=== PATIENT | female | born 2000 | race Two or more races ===

== ENCOUNTER 2019-06-14 22:39 | Emergency (ER) | payer MEDICARE ==
[~2019-06-14] VITALS: Ht 157.5 cm; Wt 54.4 kg
--- OUTSIDE RECORDS SUMMARY | 2019-06-14 22:43 | XMS REPORT | Summary of Care ---
Author Author [facility] Organization [facility] Address Unknown Phone Unavailable Encounter HQ Mima(ROBERTA) [id number] Date(s): 08/05/18 - 08/05/18 [facility] [address] [place] [address]- Encounter Diagnosis Bacterial vaginosis (Discharge Diagnosis) - 08/05/18 Abdominal pain during (Discharge Diagnosis) - 08/05/18 Infection of other part of genital tract in , first trimester (Final) - 08/10/18 Other specified bacterial agents as the cause of diseases classified elsewhere (Final) - 11 weeks gestation of (Final) - Discharge Disposition: Home or Self Care Attending Physician: Nate Smith MD Vital Signs Most recent to 1 2 oldest [Reference Range]: Temperature Oral 98.6 DegF 99.0 DegF [96.4-99.1 DegF] (08/05/18 11:44 AM) (08/05/18 7:02 AM) Blood Pressure 107/70 mmHg 109/73 mmHg [90-140/60-90 mmHg] (08/05/18 11:44 AM) (08/05/18 7:02 AM) Respiratory Rate 18 BRMIN 18 BRMIN [14-20 BRMIN] (08/05/18 11:44 AM) (08/05/18 7:02 AM) Peripheral Pulse 72 bpm 78 bpm Rate [60-100 bpm] (08/05/18 11:44 AM) (08/05/18 7:02 AM) Problem List Condition Effective Dates Status Health Status Informant Acute Resolved bronchitis(Confirmed ) Anemia(Confirmed)1 Resolved Asthma(Confirmed) Resolved (Confirmed) 05/19/18 - 02/04/19 Resolved Scoliosis(Confirmed) Resolved 1with Allergies, Adverse Reactions, Alerts No Known Medication Allergies Medications metroNIDAZOLE 0.75% vaginal gel with applicator 1 appl, VAG, Daily, # 70 gm, 0 Refill(s) Start Date: 08/05/18 Stop Date: 02/04/19 Status: Completed Results Most recent to 1 oldest [Reference Range]: Neutrophils # 5.1 K/CMM [1.5-8.1 K/CMM] (08/05/18 7:46 AM) Lymphocytes # 2.1 K/CMM [1.0-5.5 K/CMM] (08/05/18 7:46 AM) Monocytes # [0.0-0.8 0.4 K/CMM K/CMM] (08/05/18 7:46 AM) Eosinophils # 0.1 K/CMM [0.0-0.5 K/CMM] (08/05/18 7:46 AM) eGFR 147 mL/min/1.73m2 1 *NA* (08/05/18 7:46 AM) ABO/Rh O POS *Unknown* (08/05/18 7:46 AM) A/G Ratio [0.7-1.6] 1.0 (08/05/18 7:46 AM) Albumin Lvl [3.5-5.0 3.3 g/dL g/dL] *LOW* (08/05/18 7:46 AM) Alk Phos [39-136 49 unit/L unit/L] (08/05/18 7:46 AM) ALT [0-65 unit/L] 14 unit/L (08/05/18 7:46 AM) AGAP [10.0-20.0 15.7 mEq/L mEq/L] (08/05/18 7:46 AM) AST [0-37 unit/L] 12 unit/L (08/05/18 7:46 AM) B/C Ratio [6-25] 13 (08/05/18 7:46 AM) Basophils [0.0-1.0 0.5 % %] (08/05/18 7:46 AM) [place] [address] mIU/mL *NA* (08/05/18 7:46 AM) BUN [7-22 mg/dL] 9 mg/dL (08/05/18 7:46 AM) Calcium Lvl 8.4 mg/dL [8.5-10.5 mg/dL] *LOW* (08/05/18 7:46 AM) Chloride Lvl [95-109 107 mEq/L mEq/L] (08/05/18 7:46 AM) CO2 [24-32 mEq/L] 22 mEq/L *LOW* (08/05/18 7:46 AM) Creatinine Lvl 0.68 mg/dL [0.50-1.40 mg/dL] (08/05/18 7:46 AM) Eosinophils [0.0-4.0 1.1 % %] (08/05/18 7:46 AM) Globulin [2.7-4.2 3.3 g/dL g/dL] (08/05/18 7:46 AM) Glucose Lvl [70-99 78 mg/dL mg/dL] (08/05/18:46 AM) Hct [36.0-48.0 %] 35.0 % *LOW* (08/05/18:46 AM) Hgb [12.0-16.0 g/dL] 11.8 g/dL *LOW* (08/05/18 7:46 AM) Potassium Lvl 3.7 mEq/L [3.5-5.1 mEq/L] (08/05/18 7:46 AM) Lymphocytes 27.0 % [20.0-40.0 %] (08/05/18 7:46 AM) MCH [27.0-31.0 pg] 28.3 pg (08/05/18:46 AM) MCHC [32.0-36.0 33.7 g/dL g/dL] (08/05/18 7:46 AM) MCV [80.0-98.0 fL] 84.2 fL (08/05/18 7:46 AM) Monocytes [2.0-12.0 4.8 % %] (08/05/18 7:46 AM) MPV [7.4-10.4 fL] 8.4 fL (08/05/18 7:46 AM) Sodium Lvl [135-145 141 mEq/L mEq/L] (08/05/18 7:46 AM) Platelet [133-450 335 K/CMM K/CMM] (08/05/18 7:46 AM) Segs [45.0-75.0 %] 66.6 % (08/05/18 7:46 AM) Total Protein 6.6 g/dL [6.4-8.4 g/dL] (08/05/18 7:46 AM) RBC [4.20-5.40 4.16 M/CMM M/CMM] *LOW* (08/05/18 7:46 AM) RDW [11.5-14.5 %] 12.8 % (08/05/18 7:46 AM) Bili Total [0.2-1.3 0.6 mg/dL mg/dL] (08/05/18 7:46 AM) UA Bili [Negative] Negative *NA* (08/05/18 7:46 AM) UA Blood [Negative] Negative (08/05/18 7:46 AM) UA Color [Yellow] Yellow *NA* (08/05/18 7:46 AM) UA Glucose Negative [Negative] (08/05/18 7:46 AM) UA Ketones Negative [Negative] *NA* (08/05/18 7:46 AM) UA Leuk Est Negative [Negative] (08/05/18 7:46 AM) UA Nitrite Negative [Negative] (08/05/18 7:46 AM) UA pH [5.0-8.0] 6.0 (08/05/18 7:46 AM) UA Protein Negative [Negative] (08/05/18 7:46 AM) UA RBC [0-2 /HPF] 1 /HPF (08/05/18 7:46 AM) UA Spec Grav >=1.030 [<=1.030] *ABN* (08/05/18 7:46 AM) UA Sq Epi [Few /LPF] Moderate /LPF *ABN* (08/05/18 7:46 AM) UA Turbidity [Clear] Clear (08/05/18 7:46 AM) UA Urobilinogen 0.2 EU/dL [0.1-1.0 EU/dL] (08/05/18 7:46 AM) UA WBC [0-5 /HPF] 2 /HPF (08/05/18 7:46 AM) WBC [3.7-10.4 K/CMM] 7.6 K/CMM (08/05/18 7:46 AM) C trachomatis by Amp Negative Det (APTIMA) *NA* [Negative] (08/05/18 9:58 AM) N gonorrhea by Amp Negative Det (APTIMA) *NA* [Negative] (08/05/18 9:58 AM) Source APTIMA Endocervix *NA* (08/05/18 9:58 AM) 1Result Comment: The eGFR is calculated using the CKD-EPI formula. In most young, healthy individuals the eGFR will be >90 mL/min/1.73m2. The eGFR declines with age. An eGFR of 60-89 may be normal in some populations, particularly the elderly, for whom the CKD-EPI formula has not been extensively validated. Use of the eGFR is not recommended in the following populations: Individuals with unstable creatinine concentrations, including patients and those with serious co-morbid conditions. Patients with extremes in muscle mass or diet. The data above are obtained from the National Kidney Disease Education Program ( NKDEP) which additionally recommends that when the eGFR is used in patients with extremes of body mass index for purposes of drug dosing, the eGFR should be mul tiplied by the estimated BMI. Immunizations Given and Recorded Vaccine Date Status Refusal Reason pneumococcal 23-valent vaccine 02/06/19 Given diphtheria/pertussis, acel/tetanus adult 02/06/19 Given Procedures No data available for this section Social History Social History Type Response Substance Abuse Use: None. Alcohol Never Smoking Status Never smoker; Ready to change: No; Concerns about tobacco use in household: No; Exposure to Tobacco Smoke None; Cigarette Smoking Last 365 Days No; Reg Smoking Cessation Counseling No entered on: 02/03/19 Assessment and Plan No data available for this section
--- OUTSIDE RECORDS SUMMARY | 2019-06-14 22:43 | XMS REPORT | Summary of Care ---
Author Author [facility] Organization [facility] Address Unknown Phone Unavailable Encounter JULIET Guillermo(FIN) [id number] Date(s): 03/01/18 - 03/01/18 [facility] [address] [place] [address]- [phone] Encounter Diagnosis Fever, unspecified (Discharge Diagnosis) - 03/01/18 Abdominal pain, vomiting, and diarrhea (Discharge Diagnosis) - 03/01/18 Discharge Disposition: Home or Self Care Attending Physician: Xiomara Zepeda MD Vital Signs 1 2 3 Most recent to oldest [Reference Range]: 160.02 cm (03/01/18 2:52 PM) Height 99.2 DegF *HI* (03/01/18 7:16 PM) 102 DegF *HI* (03/01/18 5:50 PM) 103 DegF *HI* (03/01/18 2:52 PM) Temperature Oral [96.4-99.1 DegF] 96/54 mmHg (03/01/18 7:16 PM) 101/67 mmHg (03/01/18 5:50 PM) 102/64 mmHg (03/01/18 2:52 PM) Blood Pressure [90-140/60-90 mmHg] 18 BRMIN (03/01/18 7:16 PM) 17 BRMIN (03/01/18 5:50 PM) 18 BRMIN (03/01/18 2:52 PM) Respiratory Rate [14-20 BRMIN] 67 bpm (03/01/18 7:16 PM) 88 bpm (03/01/18 5:50 PM) 108 bpm *HI* (03/01/18 2:52 PM) Peripheral Pulse Rate [60-100 bpm] 52.273 kg (03/01/18 2:52 PM) Weight 20.41 m2 (03/01/18 2:52 PM) Body Mass Index Problem List No data available for this section Allergies, Adverse Reactions, Alerts Substance Reaction Severity Status NKDA Active Medications ibuprofen 600 mg, Route: PO, Drug form: TAB, ONCE, Dosing Weight 52.273, kg, Priority: STA T, Start date: 03/01/18 16:29:00 CDT, Stop date: 03/01/18 16:29:00 CDT Start Date: 03/01/18 Stop Date: 03/01/18 Status: Completed Sodium Chloride 0.9% (Bolus) IV 1,000 mL, 1,000 ml/hr, Infuse Over: 1 hr, Route: IV, 1,000, Drug form: INJ, ONCE , Priority: STAT, Dosing Weight 52.727 kg, Start date: 03/01/18 14:56:00 CDT, St op date: 03/01/18 14:56:00 CDT Start Date: 03/01/18 Stop Date: 03/01/18 Status: Completed Tylenol 975 mg, Route: PO, Drug form: TAB, ONCE, Dosing Weight 52.273, kg, Priority: STA T, Start date: 03/01/18 18:06:00 CDT, Stop date: 03/01/18 18:06:00 CDT Start Date: 03/01/18 Stop Date: 03/01/18 Status: Completed Zofran 4 mg, 2 mL, Route: IVP, Drug form: INJ, ONCE, Dosing Weight 52.727, kg, Start da te: 03/01/18 14:56:00 CDT, Stop date: 03/01/18 14:56:00 CDT Notes: (Same as: Zofran) MEDICATION WASTE Product Size: 4 mgProduct Was shayla: ___ mg Start Date: 03/01/18 Stop Date: 03/01/18 Status: Completed Zofran ODT 4 mg, Route: PO, Drug form: TABDIS, ONCE, Dosing Weight 52.273, kg, Priority: ST AT, Start date: 03/01/18 15:54:00 CDT, Stop date: 03/01/18 15:54:00 CDT Start Date: 03/01/18 Stop Date: 03/01/18 Status: Completed Results ELECTROLYTES Most recent to 1 oldest [Reference Range]: Sodium Lvl [135-145 139 mEq/L mEq/L] (03/01/18 3:34 PM) Potassium Lvl 4.5 mEq/L [3.5-5.1 mEq/L] (03/01/18 3:34 PM) Chloride Lvl [95-109 101 mEq/L mEq/L] (03/01/18 3:34 PM) CO2 [24-32 mEq/L] 27 mEq/L (03/01/18 3:34 PM) AGAP [10.0-20.0 15.5 mEq/L mEq/L] (03/01/18 3:34 PM) CHEM PANEL Most recent to 1 oldest [Reference Range]: Creatinine Lvl 1.08 mg/dL [0.50-1.40 mg/dL] (03/01/18 3:34 PM) eGFR 87 mL/min/1.73m2 1 *NA* (03/01/18 3:34 PM) BUN [7-22 mg/dL] 13 mg/dL (03/01/18 3:34 PM) B/C Ratio [6-25] 12 (03/01/18 3:34 PM) Glucose Lvl [70-99 82 mg/dL mg/dL] (03/01/18 3:34 PM) Total Protein 8.3 g/dL [6.4-8.4 g/dL] (03/01/18 3:34 PM) Albumin Lvl [3.5-5.0 4.4 g/dL g/dL] (03/01/18 3:34 PM) Globulin [2.7-4.2 3.9 g/dL g/dL] (03/01/18 3:34 PM) A/G Ratio [0.7-1.6] 1.1 (03/01/18 3:34 PM) Calcium Lvl 9.2 mg/dL [8.5-10.5 mg/dL] (03/01/18 3:34 PM) ALT [0-65 unit/L] 28 unit/L (03/01/18 3:34 PM) AST [0-37 unit/L] 16 unit/L (03/01/18 3:34 PM) Alk Phos [39-136 95 unit/L unit/L] (03/01/18 3:34 PM) Bili Total [0.2-1.3 2.1 mg/dL mg/dL] *HI* (03/01/18 3:34 PM) Lipase Lvl [73-393 96 unit/L unit/L] (03/01/18 3:34 PM) 1Result Comment: The eGFR is calculated using [...] be mul tiplied by the estimated BMI. ENDOCRINOLOGY Most recent to 1 oldest [Reference Range]: hCG Tot <1 mIU/mL *NA* (03/01/18 3:34 PM) URINE AND STOOL Most recent to 1 oldest [Reference Range]: UA Turbidity [Clear] Clear (03/01/18 3:58 PM) UA Color Ltyellow *NA* (03/01/18 3:58 PM) UA pH [5.0-8.0] 7.0 (03/01/18 3:58 PM) UA Spec Grav 1.017 [<=1.030] (03/01/18 3:58 PM) UA Glucose [Negative Negative mg/dL mg/dL] *NA* (03/01/18 3:58 PM) UA Blood [Negative] Negative (03/01/18 3:58 PM) UA Ketones [Negative Negative mg/dL mg/dL] *NA* (03/01/18 3:58 PM) UA Protein [Negative Negative mg/dL mg/dL] (03/01/18 3:58 PM) UA Urobilinogen <=1.0 mg/dL [0.1-1.0 mg/dL] *NA* (03/01/18 3:58 PM) UA Bili [Negative] Negative *NA* (03/01/18 3:58 PM) UA Leuk Est Trace [Negative] *ABN* (03/01/18 3:58 PM) UA Nitrite Negative [Negative] (03/01/18 3:58 PM) UA WBC [0-5 /HPF] 19 /HPF *HI* (03/01/18 3:58 PM) UA RBC [0-2 /HPF] 3 /HPF *HI* (03/01/18 3:58 PM) UA Sq Epi [Few /LPF] Occasional /LPF *NA* (03/01/18 3:58 PM) HEMATOLOGY Most recent to 1 oldest [Reference Range]: WBC [3.7-10.4 K/CMM] 10.6 K/CMM *HI* (03/01/18 3:34 PM) RBC [4.20-5.40 5.18 M/CMM M/CMM] (03/01/18 3:34 PM) Hgb [12.0-16.0 g/dL] 14.1 g/dL (03/01/18 3:34 PM) Hct [36.0-48.0 %] 42.9 % (03/01/18 3:34 PM) MCV [80.0-98.0 fL] 82.8 fL (03/01/18 3:34 PM) MCH [27.0-31.0 pg] 27.3 pg (03/01/18 3:34 PM) MCHC [32.0-36.0 32.9 g/dL g/dL] (03/01/18 3:34 PM) RDW [11.5-14.5 %] 13.0 % (03/01/18 3:34 PM) MPV [7.4-10.4 fL] 8.7 fL (03/01/18 3:34 PM) Platelet [133-450 404 K/CMM K/CMM] (03/01/18 3:34 PM) Segs [45.0-75.0 %] 92.0 % *HI* (03/01/18 3:34 PM) Lymphocytes 4.7 % [20.0-40.0 %] *LOW* (03/01/18 3:34 PM) Monocytes [2.0-12.0 3.0 % %] (03/01/18 3:34 PM) Eosinophils [0.0-4.0 0.2 % %] (03/01/18 3:34 PM) Basophils [0.0-1.0 0.1 % %] (03/01/18 3:34 PM) Segs-Bands # 9.8 K/CMM [1.5-8.1 K/CMM] *HI* (03/01/18 3:34 PM) Lymphocytes # 0.5 K/CMM [1.0-5.5 K/CMM] *LOW* (03/01/18 3:34 PM) Monocytes # [0.0-0.8 0.3 K/CMM K/CMM] (03/01/18 3:34 PM) RAPID Most recent to 1 oldest [Reference Range]: Grp A Strep Scr Negative [Negative] (03/01/18 5:53 PM) VIRAL - SEROLOGY Most recent to 1 oldest [Reference Range]: Influ A [Negative] Negative (03/01/18 3:34 PM) Influ B [Negative] Negative (03/01/18 3:34 PM) Immunizations No data available for this section Procedures No data available for this section Social History Social History Type Response Smoking Status Never smoker; Ready to change: No; Concerns about tobacco use in household: No; Exposure to Tobacco Smoke None; Cigarette Smoking Last 365 Days No; Reg Smoking Cessation Counseling No entered on: 03/01/18 Assessment and Plan No data available for this section
--- OUTSIDE RECORDS SUMMARY | 2019-06-14 22:43 | XMS REPORT | Summary of Care ---
Author Author [facility] Organization [facility] Address Unknown Phone Unavailable Encounter JULIET Guillermo(ROBERTA) [id number] Date(s): 10/07/17 - 10/07/17 [facility] [address] [place] [address]- [phone] Discharge Diagnosis: Acute depression Discharge Diagnosis: Tylenol ingestion Discharge Disposition: Home or Self Care Attending Physician: Kamryn Watts DO Vital Signs 1 2 3 Most recent to oldest [Reference Range]: 98.4 DegF (10/07/17 5:20 AM) Temperature Oral [96.4-99.1 DegF] 122/84 mmHg (10/07/17 5:20 AM) 114/80 mmHg (10/07/17 3:04 AM) 123/87 mmHg (10/07/17 1:37 AM) Blood Pressure [90-140/60-90 mmHg] 16 BRMIN (10/07/17 5:20 AM) 17 BRMIN (10/07/17 3:04 AM) 16 BRMIN (10/07/17 1:37 AM) Respiratory Rate [14-20 BRMIN] 66 bpm (10/07/17 5:20 AM) 63 bpm (10/07/17 3:04 AM) 66 bpm (10/07/17 1:37 AM) Peripheral Pulse Rate [60-100 bpm] Problem List No data available for this section Allergies, Adverse Reactions, Alerts Substance Reaction Severity Status NKDA Active Medications Saline Flush 0.9% 10 mL, Route: IVP, Drug Form: INJ, Dosing Weight 52.727, kg, PRN, PRN Line Flush , Start date: 10/07/17 1:00:00 CONTINUOUS WASHER OPERATOR, Duration: 30 day, Stop date: 11/06/17 0:59:0 0 CONTINUOUS WASHER OPERATOR Notes: (Same as: BD Posiflush) Start Date: 10/07/17 Stop Date: 10/07/17 Status: Discontinued Sodium Chloride 0.9% (Bolus) IV 1,000 mL, 1,000 ml/hr, Infuse Over: 1 hr, Route: IV, ONCE, Priority: STAT, Emelina orta Weight 52.727 kg, Start date: 10/07/17 1:00:00 CONTINUOUS WASHER OPERATOR, Stop date: 10/07/17 1:00:0 0 CONTINUOUS WASHER OPERATOR Start Date: 10/07/17 Stop Date: 10/07/17 Status: Completed Results ELECTROLYTES Most recent to 1 2 oldest [Reference Range]: Sodium Lvl [135-145 139 mEq/L mEq/L] (10/07/17 1:13 AM) Potassium Lvl 3.6 mEq/L [3.5-5.1 mEq/L] (10/07/17 1:13 AM) Chloride Lvl [95-109 105 mEq/L mEq/L] (10/07/17 1:13 AM) CO2 [24-32 mEq/L] 25 mEq/L (10/07/17 1:13 AM) AGAP [10.0-20.0 12.6 mEq/L mEq/L] (10/07/17 1:13 AM) CHEM PANEL Most recent to 1 2 oldest [Reference Range]: Creatinine Lvl 0.84 mg/dL [0.50-1.40 mg/dL] (10/07/17 1:13 AM) eGFR 117 mL/min/1.73m2 1 *NA* (10/07/17 1:13 AM) BUN [7-22 mg/dL] 11 mg/dL (10/07/17 1:13 AM) B/C Ratio [6-25] 13 (10/07/17 1:13 AM) Glucose Lvl [70-99 82 mg/dL mg/dL] (10/07/17 1:13 AM) Total Protein 7.8 g/dL [6.4-8.4 g/dL] (10/07/17 1:13 AM) Albumin Lvl [3.5-5.0 4.3 g/dL g/dL] (10/07/17 1:13 AM) Globulin [2.7-4.2 3.5 g/dL g/dL] (10/07/17 1:13 AM) A/G Ratio [0.7-1.6] 1.2 (10/07/17 1:13 AM) Calcium Lvl 8.7 mg/dL [8.5-10.5 mg/dL] (10/07/17 1:13 AM) Phosphorus [2.5-4.5 3.4 mg/dL mg/dL] (10/07/17 1:02 AM) Magnesium Lvl 2.1 mg/dL [1.8-2.4 mg/dL] (10/07/17 1:02 AM) ALT [0-65 unit/L] 22 unit/L (10/07/17 1:13 AM) AST [0-37 unit/L] 16 unit/L (10/07/17 1:13 AM) Alk Phos [39-136 78 unit/L unit/L] (10/07/17 1:13 AM) Bili Total [0.2-1.3 1.6 mg/dL mg/dL] *HI* (10/07/17 1:13 AM) 1Result Comment: The eGFR is calculated [...] be mul tiplied by the estimated BMI. DRUG SCREEN Most recent to 1 2 oldest [Reference Range]: U Amph Scr Negative [Negative] *NA* (10/07/17 1:42 AM) U Jonna Scr Negative [Negative] *NA* (10/07/17 1:42 AM) U Benzodia Scr Negative [Negative] *NA* (10/07/17 1:42 AM) U Cocaine Scr Negative [Negative] *NA* (10/07/17 1:42 AM) U Opiate Scr Negative [Negative] *NA* (10/07/17 1:42 AM) U Phencyc Scr Negative [Negative] *NA* (10/07/17 1:42 AM) U Cannab Scr Negative [Negative] *NA* (10/07/17 1:42 AM) UDS Note See Note (10/07/17 1:42 AM) TOXICOLOGY Most recent to 1 2 oldest [Reference Range]: Acetaminoph Lvl 20 ug/ml 65 ug/ml [10-20 ug/ml] (10/07/17 3:45 AM) *HI* (10/07/17 1:13 AM) Salicylate Lvl <1.7 mg/dL [0.0-30.0 mg/dL] (10/07/17 1:13 AM) Etoh (%) <.003 % *NA* (10/07/17 1:13 AM) Ethanol Lvl <3 mg/dL *NA* (10/07/17 1:13 AM) ENDOCRINOLOGY Most recent to 1 2 oldest [Reference Range]: S Preg [Negative] Negative *NA* (10/07/17 1:13 AM) URINE CHEM Most recent to 1 2 oldest [Reference Range]: U Preg [Negative] Negative (10/07/17 1:42 AM) URINE AND STOOL Most recent to 1 2 oldest [Reference Range]: UA Turbidity [Clear] Clear (10/07/17 1:42 AM) UA Color Ltyellow *NA* (10/07/17 1:42 AM) UA pH [5.0-8.0] 6.0 (10/07/17 1:42 AM) UA Spec Grav 1.010 [<=1.030] (10/07/17 1:42 AM) UA Glucose [Negative Negative mg/dL mg/dL] *NA* (10/07/17 1:42 AM) UA Blood [Negative] Negative (10/07/17 1:42 AM) UA Ketones [Negative Trace mg/dL mg/dL] *ABN* (10/07/17 1:42 AM) UA Protein [Negative Negative mg/dL mg/dL] (10/07/17 1:42 AM) UA Urobilinogen <=1.0 mg/dL [0.1-1.0 mg/dL] *NA* (10/07/17 1:42 AM) UA Bili [Negative] Negative *NA* (10/07/17 1:42 AM) UA Leuk Est Trace [Negative] *ABN* (10/07/17 1:42 AM) UA Nitrite Negative [Negative] (10/07/17 1:42 AM) UA WBC [0-5 /HPF] 1 /HPF (10/07/17 1:42 AM) UA RBC [0-2 /HPF] 1 /HPF (10/07/17 1:42 AM) UA Bacteria [None Occasional /HPF Seen /HPF] *NA* (10/07/17 1:42 AM) UA Sq Epi [Few /LPF] Occasional /LPF *NA* (10/07/17 1:42 AM) HEMATOLOGY Most recent to 1 2 oldest [Reference Range]: WBC [3.7-10.4 K/CMM] 7.6 K/CMM (10/07/17 1:13 AM) RBC [4.20-5.40 4.96 M/CMM M/CMM] (10/07/17 1:13 AM) Hgb [12.0-16.0 g/dL] 13.9 g/dL (10/07/17 1:13 AM) Hct [36.0-48.0 %] 42.3 % (10/07/17 1:13 AM) MCV [80.0-98.0 fL] 85.1 fL (10/07/17 1:13 AM) MCH [27.0-31.0 pg] 28.0 pg (10/07/17 1:13 AM) MCHC [32.0-36.0 32.9 g/dL g/dL] (10/07/17 1:13 AM) RDW [11.5-14.5 %] 12.4 % (10/07/17 1:13 AM) Platelet [133-450 347 K/CMM K/CMM] (10/07/17 1:13 AM) MPV [7.4-10.4 fL] 9.4 fL (10/07/17 1:13 AM) Segs [45.0-75.0 %] 58.4 % (10/07/17 1:13 AM) Lymphocytes 33.7 % [20.0-40.0 %] (10/07/17 1:13 AM) Monocytes [2.0-12.0 6.7 % %] (10/07/17 1:13 AM) Eosinophils [0.0-4.0 0.4 % %] (10/07/17 1:13 AM) Basophils [0.0-1.0 0.8 % %] (10/07/17 1:13 AM) Segs-Bands # 4.5 K/CMM [1.5-8.1 K/CMM] (10/07/17 1:13 AM) Lymphocytes # 2.6 K/CMM [1.0-5.5 K/CMM] (10/07/17 1:13 AM) Monocytes # [0.0-0.8 0.5 K/CMM K/CMM] (10/07/17 1:13 AM) Basophils # [0.0-0.2 0.1 K/CMM K/CMM] (10/07/17 1:13 AM) PT [12.0-14.7 13.2 seconds seconds] (10/07/17 1:13 AM) INR [0.85-1.17] 1.00 (10/07/17 1:13 AM) PTT [22.9-35.8 28.6 seconds seconds] (10/07/17 1:13 AM) Immunizations No data available for this section Procedures No data available for this section Social History Social History Type Response Smoking Status Never smoker; Ready to change: No; Concerns about tobacco use in household: No; Exposure to Tobacco Smoke None; Cigarette Smoking Last 365 Days No; Reg Smoking Cessation Counseling No Assessment and Plan No data available for this section
--- OUTSIDE RECORDS SUMMARY | 2019-06-14 22:43 | XMS REPORT | Summary of Care ---
Author Author [facility] Organization [facility] Address Unknown Phone Unavailable Encounter JULIET Guillermo(ROBERTA) [id number] Date(s): 07/01/17 - 07/01/17 [facility] [address] [place] [address]- Discharge Diagnosis: Nail avulsion, finger Discharge Disposition: Home or Self Care Attending Physician: Kamryn Watts DO Vital Signs Most recent to 1 2 oldest [Reference Range]: Height 160.02 cm (07/01/17 12:46 AM) Temperature Oral 98.1 DegF [96.4-99.1 DegF] (07/01/17 12:46 AM) Blood Pressure 113/75 mmHg 113/75 mmHg [90-140/60-90 mmHg] (07/01/17 5:43 AM) (07/01/17 12:46 AM) Respiratory Rate 18 BRMIN 16 BRMIN [14-20 BRMIN] (07/01/17 5:43 AM) (07/01/17 12:46 AM) Peripheral Pulse 67 bpm 66 bpm Rate [60-100 bpm] (07/01/17 5:43 AM) (07/01/17 12:46 AM) Weight 52.727 kg (07/01/17 12:46 AM) Body Mass Index 20.59 m2 (07/01/17 12:46 AM) Problem List No data available for this section Allergies, Adverse Reactions, Alerts Substance Reaction Severity Status NKDA Active Medications ibuprofen 600 mg oral tablet 600 mg=1 tab, PO, Q8H, PRN pain, X 5 day, # 15 tab, 0 Refill(s) Start Date: 07/01/17 Stop Date: 07/06/17 Status: Ordered Results No data available for this section Immunizations No data available for this section [...]
--- OUTSIDE RECORDS SUMMARY | 2019-06-14 22:43 | XMS REPORT | Continuity of Care Document ---
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 Role Phone [facility] [employer] Unavailable Unavailable Problems Problem Status Onset Date Classification Date Reported Comments Source HIP PAIN, BACK PAIN Active 02/03/2019 [facility] LABOR Active 02/03/2019 [facility] Infection of other part of genital tract in , first trimester 08/11/2018 02/22/2019 [facility] Acute vaginitis 08/05/2018 02/22/2019 [facility] Other specified related conditions, unspecified trimester 08/05/2018 02/22/2019 [facility] ABD PAIN/11 WKS Active 08/05/2018 [facility] Patient currently (finding) Resolved 05/19/2018 Problem 02/22/2019 [facility] Fever, unspecified 03/01/2018 03/04/2018 [facility] Unspecified abdominal pain 03/01/2018 03/04/2018 [facility] VOMITTING, FEVER,HEADACHE, PAIN Active 03/01/2018 [facility] Major depressive disorder, single episode, unspecified 10/07/2017 10/10/2017 [facility] Poisoning by 4-Aminophenol derivatives, accidental (unintentional), initial encounter 10/07/2017 10/10/2017 [facility] OVERDOSE INTENTIONAL Active 10/06/2017 [facility] Unspecified open wound of unspecified finger with damage to nail, initial encounter 07/01/2017 07/04/2017 [facility] FINGER NAIL PAIN OR INJURY Active 06/30/2017 [facility] Other specified bacterial agents as the cause of diseases classified elsewhere 02/22/2019 [facility] 11 weeks gestation of 02/22/2019 [facility] Acute bronchitis (disorder) Resolved Problem 02/22/2019 [facility] Anemia (disorder) Resolved Problem 02/22/2019 with [facility] Asthma (disorder) Resolved Problem 02/22/2019 [facility] Scoliosis deformity of spine (disorder) Resolved Problem 02/22/2019 [facility] ENCOUNTER FOR FULL-TERM UNCOMPLICATED DE Active [facility] Medications Medication Details Route Status Patient Instructions Ordering Provider Order Date Source Tylenol 650 mg, 2 tab, Route: PO, Drug form: TAB, Q4H, Dosing Weight 64.091, kg, PRN Pain Score 4-6, Start date: 02/05/19 13:01:00 CDT, Duration: 30 day, Stop date: 03/07/19 13:00:00 CDTNotes: Do not exceed 4 gm/day. (Same as: Tylenol) No Longer Active 02/05/2019 [facility] Multivitamins oral tablet 1 tab, Route: PO, Drug Form: TAB, Dosing Weight 64.091, kg, Daily, Start date: 02/05/19 9:00:00 CDT, Duration: 30 day, Stop date: 03/06/19 9:00:00 CDT No Longer Active 02/05/2019 [facility] Labetalol 20 mg, 4 mL, Route: IVP, Drug form: INJ, ONCE, Dosing Weight 64.091, kg, PRN Hypertension, Start date: 02/04/19 16:57:00 CDTNotes: (Same as: Normodyne, Trandate) Push over 2 minutes Give bolus over 2- 3 minutes. No Longer Active 02/04/2019 [facility] Ibuprofen 600 mg, 1 tab, Route: PO, Drug form: TAB, Q6Hnow, Dosing Weight 64.091, kg, Start date: 02/04/19 16:00:00 CDT, Duration: 30 day, Stop date: 03/06/19 10:00:00 CDTNotes: (Same as: Motrin) "Do Not Crush" Take with food. No Longer Active 02/04/2019 [facility] Docusate 100 mg, 1 cap, Route: PO, Drug form: CAP, BID, Dosing Weight 64.091, kg, PRN Constipation, Start date: 02/04/19 15:02:00 CDT, Duration: 30 day, Stop date: 03/06/19 15:01:00 CDTNotes: (Same as: Colace) (Do Not Crush) No Longer Active 02/04/2019 [facility] Bisacodyl 10 mg, 1 supp, Route: FL, Drug form: SUPP, PRN, Dosing Weight 64.091, kg, PRN Other -See Comment, Start date: 02/04/19 15:02:00 CDT, Duration: 30 day, Stop date: 03/06/19 15:01:00 CDTNotes: (Same As: Dulcolax, Bisco-Lax) No Longer Active 02/04/2019 [facility] zolpidem 5 mg, 1 tab, Route: PO, Drug form: TAB, Bedtime, Dosing Weight 64.091, kg, PRN Sleep, Start date: 02/04/19 15:02:00 CDT, Duration: 30 day, Stop date: 03/06/19 15:01:00 CDTNotes: (Same As: Ambien) No Longer Active 02/04/2019 [facility] lanolin topical 1 appl, Route: TOP, PRN, Drug form: OINT, PRN Other -See Comment, Start date: 02/04/19 15:02:00 CDT, Duration: 30 day, Stop date: 03/06/19 15:01:00 CDT No Longer Active 02/04/2019 [facility] Methylergonovine 0.2 mg, 1 mL, Route: IM, Drug form: INJ, PRN, Dosing Weight 64.091, kg, PRN Other -See Comment, Start date: 02/04/19 15:02:00 CDT, Duration: 30 day, Stop date: 03/06/19 15:01:00 CDTNotes: (Same as:Methergine) No Longer Active 02/04/2019 [facility] Benzocaine 200 MG/ML Topical [place] [Dermoplast] 1 spray, Route: TOP, PRN, Drug form: SPRY, PRN Irritation, Start date: 02/04/19 15:02:00 CDT, Duration: 30 day, Stop date: 03/06/19 15:01:00 CDTNotes: (Same As: Dermoplast) WASTE: Aerosol - Return to Pharmacy FOR EXTERNAL USE ONLY No Longer Active 02/04/2019 [facility] Lactated Ringers IV 1,000 mL 1,000 mL, Rate: 100 ml/hr, Infuse over: 10 hr, Route: IV, Dosing Weight 64.091 kg, Total Volume: 1,000, Start date: 02/04/19 15:02:00 CDT, Duration: 30 day, Stop date: 03/06/19 15:01:00 CDT, 1.69, m2 No Longer Active 02/04/2019 [facility] Oxytocin 30 unit, 500 mL, Rate: 42 ml/hr, Infuse over: 11.9 hr, Dosing Weight 64.091, kg, Route: IV, Total Volume: 500 mL, Start date: 02/04/19 15:02:00 CDT, Duration: 2 day, Stop date: 02/06/19 15:01:00 CDT, Replace Every: 11.9 hr No Longer Active 02/04/2019 [facility] Ondansetron 4 mg, 2 mL, Route: IVP, Drug form: INJ, Q8H, Dosing Weight 64.091, kg, PRN Nausea & Vomiting, Start date: 02/04/19 15:02:00 CDT, Duration: 30 day, Stop date: 03/06/19 15:01:00 CDTNotes: (Same as: Zofran) MEDICATION WASTE Product Size: 4 mg Product Wasted: ___ mg No Longer Active 02/04/2019 [facility] Penicillin G 2,500,000 unit, 50 mL, Route: IVPB, Drug form: INJ, ABXQ4H, Dosing Weight 64.091, kg, Start date: 02/04/19 4:00:00 CDT, Duration: 30 day, Stop date: 03/06/19 0:00:00 CDT Inactive 02/04/2019 [facility] 1 oral capsule 0 Refill(s) Active 02/04/2019 [facility] Penicillin G Potassium [id number] UNT/ML Injectable Solution 5,000,000 unit, Route: IVPB, ONCALL, Dosing Weight 64.091, kg, Start date: 02/04/19 0:00:00 CDT, Duration: 30 day, Stop date: 03/05/19 23:59:00 CDTNotes: (Same as: Pfizerpen) MEDICATION WASTE Product Size: 5,000,000 unit Product Wasted: ___ unit Inactive 02/04/2019 [facility] Methylergonovine 0.2 mg, 1 mL, Route: IM, Drug form: INJ, ONCALL, Dosing Weight 64.091, kg, Start date: 02/04/19 0:00:00 CDT, Duration: 30 day, Stop date: 03/05/19 23:59:00 CDTNotes: (Same as:Methergine) Inactive 02/04/2019 [facility] Citric Acid / sodium citrate 30 mL, Route: PO, Drug Form: SOLN, Dosing Weight 64.091, kg, ONCALL, Start date: 02/04/19 0:00:00 CDT, Duration: 30 day, Stop date: 03/05/19 23:59:00 CDTNotes: (Same As: Bicitra) Inactive 02/04/2019 [facility] Carboprost 250 microgram, 1 mL, Route: IM, Drug form: INJ, ONCALL, Dosing Weight 64.091, kg, Start date: 02/04/19 0:00:00 CDT, Duration: 30 day, Stop date: 03/05/19 23:59:00 CDTNotes: (Same As: Hemabate) Inactive 02/04/2019 [facility] Misoprostol 1,000 microgram, 5 tab, Route: FL, Drug form: TAB, ONCALL, Dosing Weight 64.091, kg, Start date: 02/04/19 0:00:00 CDT, Duration: 1 doses or timesNotes: (Same as:Cytotec) Take with food Inactive 02/04/2019 [facility] Famotidine 20 mg, 2 mL, Route: IVP, Drug form: INJ, ONCALL, Dosing Weight 64.091, kg, Start date: 02/04/19 0:00:00 CDT, Duration: 30 day, Stop date: 03/05/19 23:59:00 CDTNotes: (Same as: Pepcid) Can be dilute in 5-10cc NS IVP: Slow IV push over at least 2 minutes. Inactive 02/04/2019 [facility] Oxytocin 30 unit, 500 mL, Rate: Titrate, Dosing Weight 64.091, kg, Route: IV, Total Volume: 500 mL, Start date: 02/03/19 23:37:00 CDT, Duration: 2 day, Stop date: 02/05/19 23:36:00 CDT, Replace Every: 24 hr No Longer Active 02/04/2019 [facility] Tranexamic Acid 1 gm, 10 mL, Route: IVPB, TID, Dosing Weight 64.091, kg, PRN Other -See Comment, Priority: STAT, Start date: 02/03/19 23:37:00 CDT, Duration: 30 day, Stop date: 03/05/19 23:36:00 CDTNotes: (Same As: Cyklokapron) No Longer Active 02/04/2019 [facility] Terbutaline 0.25 mg, 0.25 mL, Route: SUB-Q, Drug form: INJ, PRN, Dosing Weight 64.091, kg, PRN Other -See Comment, Start date: 02/03/19 23:37:00 CDT, Duration: 1 doses or times, Stop date: Limited # of timesNotes: DO NOT USE IN INSPECTOR RUBBER STAMP DIE AREA (Same As: Brethine) No Longer Active 02/04/2019 [facility] Acetaminophen 325 MG / Hydrocodone Bitartrate 5 MG Oral Tablet 2 tab, Route: PO, Drug Form: TAB, Dosing Weight 64.091, kg, Q4H, PRN Pain Score 7-10, Start date: 02/03/19 23:37:00 CDT, Duration: 30 day, Stop date: 03/05/19 23:36:00 CDTNotes: (Same as: [place] 325/5) Do not exceed 4gm/day of acetaminophen. No Longer Active 02/04/2019 [facility] Ibuprofen 600 mg, 1 tab, Route: PO, Drug form: TAB, Q6H, Dosing Weight 64.091, kg, PRN Other -See Comment, Start date: 02/03/19 23:37:00 CDT, Duration: 30 day, Stop date: 03/05/19 23:36:00 CDTNotes: (Same as: Motrin) "Do Not Crush" Take with food. No Longer Active 02/04/2019 [facility] Lidocaine Hydrochloride 10 MG/ML Injectable Solution 200 mg, 20 mL, Route: PERCUT, Drug Form: INJ, Dosing Weight 64.091, kg, PRN, PRN Other -See Comment, Start date: 02/03/19 23:37:00 CDT, Duration: 1 doses or times, Stop date: Limited # of timesNotes: (Same as: Xylocaine) No Longer Active 02/04/2019 [facility] Ondansetron 4 mg, 2 mL, Route: IVP, Drug form: INJ, Q8H, Dosing Weight 64.091, kg, PRN Nausea & Vomiting, Start date: 02/03/19 23:37:00 CDT, Duration: 30 day, Stop date: 03/05/19 23:36:00 CDTNotes: (Same as: Taylor) MEDICATION WASTE Product Size: 4 mg Product Wasted: ___ mg No Longer Active 02/04/2019 [facility] Butorphanol 2 mg, 1 mL, Route: IVP, Drug form: INJ, Q2H, Dosing Weight 64.091, kg, PRN Pain Score 7-10, Start date: 02/03/19 23:37:00 CDT, Duration: 30 day, Stop date: 03/05/19 23:36:00 CDTNotes: (Same As: Moncho) MEDICATION WASTE Product Size: 2 mg Product Wasted: ___ mg No Longer Active 02/04/2019 [facility] Lactated Ringers IV 1,000 mL 1,000 mL, Rate: 125 ml/hr, Infuse over: 8 hr, Route: IV, Dosing Weight 64.091 kg, Total Volume: 1,000, Start date: 02/03/19 23:37:00 CDT, Duration: 30 day, Stop date: 03/05/19 23:36:00 CDT, 1.69, m2 No Longer Active 02/04/2019 [facility] Calcium Chloride 0.0014 MEQ/ML / Potassium Chloride 0.004 MEQ/ML / Sodium Chloride 0.103 MEQ/ML / Sodium Lactate 0.028 MEQ/ML Injectable Solution 1,000 mL, 1,000 ml/hr, Infuse Over: 1 hr, Route: IV, 1,000, Drug form: INJ, ONCE, Dosing Weight 64.091 kg, Start date: 02/03/19 23:37:00 CDT, Stop date: 02/03/19 23:37:00 CDT, Bolus for regional anesthesia per unit routine No Longer Active 02/04/2019 [facility] Metronidazole 0.0075 MG/MG Vaginal Gel 1 appl, VAG, Daily, # 70 gm, 0 Refill(s) No Longer Active 08/05/2018 [facility] Tylenol 975 mg, Route: PO, Drug form: TAB, ONCE, Dosing Weight 52.273, kg, Priority: STAT, Start date: 03/01/18 18:06:00 CDT, Stop date: 03/01/18 18:06:00 CDT Inactive 03/01/2018 [facility] Ibuprofen 600 mg, Route: PO, Drug form: TAB, ONCE, Dosing Weight 52.273, kg, Priority: STAT, Start date: 03/01/18 16:29:00 CDT, Stop date: 03/01/18 16:29:00 CDT Inactive 03/01/2018 [facility] Zofran ODT 4 mg, Route: PO, Drug form: TABDIS, ONCE, Dosing Weight 52.273, kg, Priority: STAT, Start date: 03/01/18 15:54:00 CDT, Stop date: 03/01/18 15:54:00 CDT Inactive 03/01/2018 [facility] Zofran 4 mg, 2 mL, Route: IVP, Drug form: INJ, ONCE, Dosing Weight 52.727, kg, Start date: 03/01/18 14:56:00 CDT, Stop date: 03/01/18 14:56:00 CDTNotes: (Same as: Zofran) MEDICATION WASTE Product Size: 4 mg Product Wasted: ___ mg Inactive 03/01/2018 [facility] Sodium Chloride 0.9% (Bolus) IV 1,000 mL, 1,000 ml/hr, Infuse Over: 1 hr, Route: IV, 1,000, Drug form: INJ, ONCE, Priority: STAT, Dosing Weight 52.727 kg, Start date: 03/01/18 14:56:00 CDT, Stop date: 03/01/18 14:56:00 CDT Inactive 03/01/2018 [facility] Sodium Chloride 0.9% (Bolus) IV 1,000 mL, 1,000 ml/hr, Infuse Over: 1 hr, Route: IV, ONCE, Priority: STAT, Dosing Weight 52.727 kg, 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, 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: 10/07/17 1:00:00 [employer]SP[employer] 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 Inactive 10/07/2017 [facility] Saline Flush 0.9% 10 mL, Route: IVP, Drug Form: INJ, Dosing Weight 52.727, kg, PRN, PRN Line Flush, 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, Duration: 30 day, Stop date: 11/06/17 0:59:00 CSTNotes: (Same as: BD Posiflush) Inactive 10/07/2017 [facility] ibuprofen 600 mg oral tablet 600 mg=1 tab, PO, Q8H, PRN pain, X 5 day, # 15 tab, 0 Refill(s) Active 07/01/2017 [facility] Allergies, Adverse Reactions, Alerts Substance Category Reaction Severity Reaction type Status Date Reported Comments Source No Known Medication Allergies Assertion Drug allergy [facility] Immunizations Immunization Date Given Site Status Last Updated Comments Source pneumococcal 23-valent vaccine 02/06/2019 Right deltoid completed [facility] diphtheria/pertussis, acel/tetanus adult 02/06/2019 Right deltoid completed [facility] Results Order Name Results Value Reference Range Date Interpretation Comments Source HEMATOLOGY Hct 31.5 36.0 - 48.0 02/05/2019 [facility] HEMATOLOGY Hgb 10.5 12.0 - 16.0 02/05/2019 [facility] BLOOD BANK RESULTS Rhig Reqd See Note 1 (02/04/19 12:17 AM) 02/04/2019 Result Comment: 02/04/2019 01:01 [id number]
This patient is not a candidate for Rh(O)D immune globulin. [facility] BLOOD BANK RESULTS Antibody Scrn Negative (02/04/19 12:17 AM) 02/04/2019 [facility] BLOOD BANK RESULTS ABO/Rh O POS 02/04/2019 [facility] [place] RDW 13.4 11.5 - 14.5 02/04/2019 [facility] [place] MPV 8.7 7.4 - 10.4 02/04/2019 [facility] [place] Platelet 244 133 - 450 02/04/2019 [facility] [place] MCHC 32.5 32.0 - 36.0 02/04/2019 [facility] [place] Hct 34.1 36.0 - 48.0 02/04/2019 [facility] [place] MCH 26.4 27.0 - 31.0 02/04/2019 [facility] [place] MCV 81.4 80.0 - 98.0 02/04/2019 [facility] [place] RBC 4.19 4.20 - 5.40 02/04/2019 [facility] [place] Hgb 11.1 12.0 - 16.0 02/04/2019 [facility] [place] WBC 13.2 3.7 - 10.4 02/04/2019 [facility] [place] Monocytes # 0.7 0.0 - 0.8 02/04/2019 [facility] [place] Eosinophils # 0.1 0.0 - 0.5 02/04/2019 [facility] [place] Lymphocytes # 2.3 1.0 - 5.5 02/04/2019 [facility] [place] Neutrophils # 10.1 1.5 - 8.1 02/04/2019 [facility] [place] Eosinophils 0.6 0.0 - 4.0 02/04/2019 [facility] [place] Basophils 0.3 0.0 - 1.0 02/04/2019 [facility] [place] Monocytes 5.0 2.0 - 12.0 02/04/2019 [facility] [place] Lymphocytes 17.5 20.0 - 40.0 02/04/2019 [facility] [place] Segs 76.6 45.0 - 75.0 02/04/2019 [facility] Hep Bs Ag Negative *NA* (02/04/19 12:13 AM) Negative 02/04/2019 [facility] HIV. Negative *NA* (02/04/19 12:13 AM) Negative 02/04/2019 [facility] Treponemal Ab Non-Reactive *NA* (02/04/19 12:13 AM) Non 02/04/2019 [facility] Rubella IgG 25.4 >=10.0 IU/mL 02/04/2019 [facility] MOLECULAR DIAGNOSTIC N gonorrhea by Amp Det (APTIMA) Negative *NA* (08/05/18 9:58 AM) Negative 08/05/2018 [facility] MOLECULAR DIAGNOSTIC C trachomatis by Amp Det (APTIMA) Negative *NA* (08/05/18 9:58 AM) Negative 08/05/2018 [facility] MOLECULAR DIAGNOSTIC Source APTIMA Endocervix *NA* (08/05/18 9:58 AM) 08/05/2018 [facility] BLOOD BANK RESULTS ABO/Rh O POS 08/05/2018 [facility] CHEM PANEL eGFR 147 08/05/2018 Result Comment: The eGFR is calculated using the [...] from the National Kidney Disease Education Program (NKDEP) which additionally recommends that when the eGFR is used in patients with extremes of body mass index for purposes of drug dosing, the eGFR should be multiplied by the estimated BMI. [facility] CHEM PANEL Total Protein 6.6 6.4 - 8.4 08/05/2018 [facility] CHEM PANEL Calcium Lvl 8.4 8.5 - 10.5 08/05/2018 [facility] CHEM PANEL CO2 22 24 - 32 08/05/2018 [facility] CHEM PANEL Chloride Lvl 107 95 - 109 08/05/2018 [facility] CHEM PANEL Potassium Lvl 3.7 3.5 - 5.1 08/05/2018 [facility] CHEM PANEL Sodium Lvl 141 135 - 145 08/05/2018 [facility] CHEM PANEL Bili Total 0.6 0.2 - 1.3 08/05/2018 [facility] CHEM PANEL Alk Phos 49 39 - 136 08/05/2018 [facility] CHEM PANEL AST 12 0 - 37 08/05/2018 [facility] CHEM PANEL ALT 14 0 - 65 08/05/2018 [facility] CHEM PANEL Albumin Lvl 3.3 3.5 - 5.0 08/05/2018 [facility] CHEM PANEL Creatinine Lvl 0.68 0.50 - 1.40 08/05/2018 [facility] CHEM PANEL BUN 9 7 - 22 08/05/2018 [facility] CHEM PANEL Glucose Lvl 78 70 - 99 08/05/2018 [facility] CHEM PANEL A/G Ratio 1.0 0.7 - 1.6 08/05/2018 [facility] CHEM PANEL Globulin 3.3 2.7 - 4.2 08/05/2018 [facility] CHEM PANEL B/C Ratio 13 6 - 25 08/05/2018 [facility] CHEM PANEL AGAP 15.7 10.0 - 20.0 08/05/2018 [facility] [place] [id number] 08/05/2018 [facility] HEMATOLOGY Monocytes # 0.4 0.0 - 0.8 08/05/2018 [facility] HEMATOLOGY Lymphocytes # 2.1 1.0 - 5.5 08/05/2018 [facility] HEMATOLOGY Eosinophils # 0.1 0.0 - 0.5 08/05/2018 [facility] HEMATOLOGY Eosinophils 1.1 0.0 - 4.0 08/05/2018 [facility] HEMATOLOGY Lymphocytes 27.0 20.0 - 40.0 08/05/2018 [facility] HEMATOLOGY Monocytes 4.8 2.0 - 12.0 08/05/2018 [facility] HEMATOLOGY Segs 66.6 45.0 - 75.0 08/05/2018 [facility] HEMATOLOGY Neutrophils # 5.1 1.5 - 8.1 08/05/2018 [facility] HEMATOLOGY Basophils 0.5 0.0 - 1.0 08/05/2018 [facility] HEMATOLOGY MPV 8.4 7.4 - 10.4 08/05/2018 [facility] HEMATOLOGY RDW 12.8 11.5 - 14.5 08/05/2018 [facility] HEMATOLOGY Platelet 335 133 - 450 08/05/2018 [facility] [place] MCHC 33.7 32.0 - 36.0 08/05/2018 [facility] [place] MCH 28.3 27.0 - 31.0 08/05/2018 [facility] HEMATOLOGY WBC 7.6 3.7 - 10.4 08/05/2018 [facility] HEMATOLOGY Hct 35.0 36.0 - 48.0 08/05/2018 [facility] HEMATOLOGY MCV 84.2 80.0 - 98.0 08/05/2018 [facility] HEMATOLOGY Hgb 11.8 12.0 - 16.0 08/05/2018 [facility] HEMATOLOGY RBC 4.16 4.20 - 5.40 08/05/2018 [facility] URINE AND STOOL UA Bili Negative *NA* (08/05/18 7:46 AM) Negative 08/05/2018 [facility] URINE AND STOOL UA Glucose Negative (08/05/18 7:46 AM) Negative 08/05/2018 [facility] URINE AND STOOL UA Ketones Negative *NA* (08/05/18 7:46 AM) Negative 08/05/2018 [facility] URINE AND STOOL UA pH 6.0 5.0 - 8.0 08/05/2018 [facility] URINE AND STOOL UA Protein Negative (08/05/18 7:46 AM) Negative 08/05/2018 [facility] URINE AND STOOL UA Urobilinogen 0.2 0.1 - 1.0 08/05/2018 [facility] URINE AND STOOL UA Nitrite Negative (08/05/18 7:46 AM) Negative 08/05/2018 [facility] URINE AND STOOL UA Blood Negative (08/05/18 7:46 AM) Negative 08/05/2018 [facility] URINE AND STOOL UA Leuk Est Negative (08/05/18 7:46 AM) Negative 08/05/2018 [facility] URINE AND STOOL UA Spec Grav >=1.030 *ABN* (08/05/18 7:46 AM) <=1.030 08/05/2018 [facility] URINE AND STOOL UA Turbidity Clear (08/05/18 7:46 AM) Clear 08/05/2018 [facility] URINE AND STOOL UA Color Yellow *NA* (08/05/18 7:46 AM) Yellow 08/05/2018 [facility] URINE AND STOOL UA Sq Epi Moderate /LPF Few /LPF 08/05/2018 [facility] URINE AND STOOL UA WBC 2 0 - 5 08/05/2018 [facility] URINE AND STOOL UA RBC 1 0 - 2 08/05/2018 [facility] RAPID Grp A Strep Scr Negative (03/01/18 5:53 PM) Negative 03/01/2018 [facility] URINE AND STOOL UA Urobilinogen <=1.0 mg/dL 0.1 - 1.0 03/01/2018 [facility] URINE AND STOOL UA Nitrite Negative (03/01/18 3:58 PM) Negative 03/01/2018 [facility] URINE AND STOOL UA Blood Negative (03/01/18 3:58 PM) Negative 03/01/2018 [facility] URINE AND STOOL UA Bili Negative *NA* (03/01/18 3:58 PM) Negative 03/01/2018 [facility] URINE AND STOOL UA Ketones Negative mg/dL Negative mg/dL 03/01/2018 [facility] URINE AND STOOL UA Leuk Est Trace *ABN* (03/01/18 3:58 PM) Negative 03/01/2018 [facility] URINE AND STOOL UA WBC 19 0 - 5 03/01/2018 [facility] URINE AND STOOL UA RBC 3 0 - 2 03/01/2018 [facility] URINE AND STOOL UA Sq Epi Occasional /LPF Few /LPF 03/01/2018 [facility] URINE AND STOOL UA Color Ltyellow 03/01/2018 [facility] URINE AND STOOL UA pH 7.0 5.0 - 8.0 03/01/2018 [facility] URINE AND STOOL UA Turbidity Clear (03/01/18 3:58 PM) Clear 03/01/2018 [facility] URINE AND STOOL UA Protein Negative mg/dL Negative mg/dL 03/01/2018 [facility] URINE AND STOOL UA Spec Grav 1.017 <=1.030 03/01/2018 [facility] URINE AND STOOL UA Glucose Negative mg/dL Negative mg/dL 03/01/2018 [facility] CHEM PANEL Lipase Lvl 96 73 - 393 03/01/2018 [facility] CHEM PANEL eGFR 87 03/01/2018 Result Comment: The eGFR is calculated using the [...] from the National Kidney Disease Education Program (NKDEP) which additionally recommends that when the eGFR is used in patients with extremes of body mass index for purposes of drug dosing, the eGFR should be multiplied by the estimated BMI. [facility] CHEM PANEL AST 16 0 - 37 03/01/2018 [facility] CHEM PANEL Alk Phos 95 39 - 136 03/01/2018 [facility] CHEM PANEL Bili Total 2.1 0.2 - 1.3 03/01/2018 [facility] CHEM PANEL Creatinine Lvl 1.08 0.50 - 1.40 03/01/2018 [facility] CHEM PANEL Glucose Lvl 82 70 - 99 03/01/2018 [facility] CHEM PANEL BUN 13 7 - 22 03/01/2018 [facility] CHEM PANEL ALT 28 0 - 65 03/01/2018 [facility] CHEM PANEL Total Protein 8.3 6.4 - 8.4 03/01/2018 [facility] CHEM PANEL Albumin Lvl 4.4 3.5 - 5.0 03/01/2018 [facility] CHEM PANEL Potassium Lvl 4.5 3.5 - 5.1 03/01/2018 [facility] CHEM PANEL Calcium Lvl 9.2 8.5 - 10.5 03/01/2018 [facility] CHEM PANEL Chloride Lvl 101 95 - 109 03/01/2018 [facility] CHEM PANEL Sodium Lvl 139 135 - 145 03/01/2018 [facility] CHEM PANEL CO2 27 24 - 32 03/01/2018 [facility] CHEM PANEL A/G Ratio 1.1 0.7 - 1.6 03/01/2018 [facility] CHEM PANEL B/C Ratio 12 6 - 25 03/01/2018 [facility] CHEM PANEL AGAP 15.5 10.0 - 20.0 03/01/2018 [facility] CHEM PANEL Globulin 3.9 2.7 - 4.2 03/01/2018 [facility] ENDOCRINOLOGY hCG Tot <1 03/01/2018 [facility] HEMATOLOGY MPV 8.7 7.4 - 10.4 03/01/2018 [facility] HEMATOLOGY Platelet 404 133 - 450 03/01/2018 [facility] HEMATOLOGY RDW 13.0 11.5 - 14.5 03/01/2018 [facility] [place] MCHC 32.9 32.0 - 36.0 03/01/2018 [facility] [place] MCH 27.3 27.0 - 31.0 03/01/2018 [facility] [place] MCV 82.8 80.0 - 98.0 03/01/2018 [facility] [place] Hgb 14.1 12.0 - 16.0 03/01/2018 [facility] HEMATOLOGY Hct 42.9 36.0 - 48.0 03/01/2018 [facility] HEMATOLOGY WBC 10.6 3.7 - 10.4 03/01/2018 [facility] [place] [facility] RBC 5.18 4.20 - 5.40 03/01/2018 [facility] HEMATOLOGY Monocytes # 0.3 0.0 - 0.8 03/01/2018 [facility] [place] [facility] [place] Lymphocytes # 0.5 1.0 - 5.5 03/01/2018 [facility] HEMATOLOGY Segs-Bands # 9.8 1.5 - 8.1 03/01/2018 [facility] [place] [facility] [place] Monocytes 3.0 2.0 - 12.0 03/01/2018 [facility] HEMATOLOGY Basophils 0.1 0.0 - 1.0 03/01/2018 [facility] HEMATOLOGY Eosinophils 0.2 0.0 - 4.0 03/01/2018 [facility] [place] [facility] [place] Lymphocytes 4.7 20.0 - 40.0 03/01/2018 [facility] HEMATOLOGY Segs 92.0 45.0 - 75.0 03/01/2018 [facility] VIRAL - SEROLOGY Influ A Negative (03/01/18 3:34 PM) Negative 03/01/2018 [facility] VIRAL - SEROLOGY Influ B Negative (03/01/18 3:34 PM) Negative 03/01/2018 [facility] TOXICOLOGY Acetaminoph Lvl 20 10 - 20 10/07/2017 [facility] SCREEN U Opiate Scr Negative *NA* (10/07/17 1:42 AM) Negative 10/07/2017 [facility] DRUG SCREEN U Phencyc Scr Negative *NA* (10/07/17 1:42 AM) Negative 10/07/2017 [facility] DRUG SCREEN U Cannab Scr Negative *NA* (10/07/17 1:42 AM) Negative 10/07/2017 [facility] DRUG SCREEN U Jonna Scr Negative *NA* (10/07/17 1:42 AM) Negative 10/07/2017 [facility] DRUG SCREEN U Amph Scr Negative *NA* (10/07/17 1:42 AM) Negative 10/07/2017 [facility] DRUG SCREEN U Cocaine Scr Negative *NA* (10/07/17 1:42 AM) Negative 10/07/2017 [facility] DRUG SCREEN U Benzodia Scr Negative *NA* (10/07/17 1:42 AM) Negative 10/07/2017 [facility] DRUG SCREEN UDS Note See Note (10/07/17 1:42 AM) 10/07/2017 [facility] URINE AND STOOL UA Urobilinogen <=1.0 mg/dL 0.1 - 1.0 10/07/2017 [facility] URINE AND STOOL UA Color Ltyellow 10/07/2017 [facility] URINE AND STOOL UA RBC 1 0 - 2 10/07/2017 [facility] URINE AND STOOL UA Bacteria Occasional /HPF None Seen /HPF 10/07/2017 [facility] URINE AND STOOL UA WBC 1 0 - 5 10/07/2017 [facility] URINE AND STOOL UA Nitrite Negative (10/07/17 1:42 AM) Negative 10/07/2017 [facility] URINE AND STOOL UA Leuk Est Trace *ABN* (10/07/17 1:42 AM) Negative 10/07/2017 [facility] URINE AND STOOL UA Sq Epi Occasional /LPF Few /LPF 10/07/2017 [facility] URINE AND STOOL UA Ketones Trace mg/dL Negative mg/dL 10/07/2017 [facility] URINE AND STOOL UA Bili Negative *NA* (10/07/17 1:42 AM) Negative 10/07/2017 [facility] URINE AND STOOL UA Blood Negative (10/07/17 1:42 AM) Negative 10/07/2017 [facility] URINE AND STOOL UA Protein Negative mg/dL Negative mg/dL 10/07/2017 [facility] URINE AND STOOL UA Glucose Negative mg/dL Negative mg/dL 10/07/2017 [facility] URINE AND STOOL UA Turbidity Clear (10/07/17 1:42 AM) Clear 10/07/2017 [facility] URINE AND STOOL UA Spec Grav 1.010 <=1.030 10/07/2017 [facility] URINE AND STOOL UA pH 6.0 5.0 - 8.0 10/07/2017 [facility] URINE CHEM U Preg Negative (10/07/17 1:42 AM) Negative 10/07/2017 [facility] CHEM PANEL Globulin 3.5 2.7 - 4.2 10/07/2017 [facility] CHEM PANEL A/G Ratio 1.2 0.7 - 1.6 10/07/2017 [facility] CHEM PANEL B/C Ratio 13 6 - 25 10/07/2017 [facility] CHEM PANEL AGAP 12.6 10.0 - 20.0 10/07/2017 [facility] CHEM PANEL eGFR 117 10/07/2017 Result Comment: The eGFR is calculated using the [...] from the National Kidney Disease Education Program (NKDEP) which additionally recommends that when the eGFR is used in patients with extremes of body mass index for purposes of drug dosing, the eGFR should be multiplied by the estimated BMI. [facility] CHEM PANEL Glucose Lvl 82 70 - 99 10/07/2017 [facility] CHEM PANEL Total Protein 7.8 6.4 - 8.4 10/07/2017 [facility] CHEM PANEL Calcium Lvl 8.7 8.5 - 10.5 10/07/2017 [facility] CHEM PANEL CO2 25 24 - 32 10/07/2017 [facility] CHEM PANEL Chloride Lvl 105 95 - 109 10/07/2017 [facility] CHEM PANEL Potassium Lvl 3.6 3.5 - 5.1 10/07/2017 [facility] CHEM PANEL Albumin Lvl 4.3 3.5 - 5.0 10/07/2017 [facility] CHEM PANEL Bili Total 1.6 0.2 - 1.3 10/07/2017 [facility] CHEM PANEL Alk Phos 78 39 - 136 10/07/2017 [facility] CHEM PANEL AST 16 0 - 37 10/07/2017 [facility] CHEM PANEL ALT 22 0 - 65 10/07/2017 [facility] CHEM PANEL Sodium Lvl 139 135 - 145 10/07/2017 [facility] CHEM PANEL Creatinine Lvl 0.84 0.50 - 1.40 10/07/2017 [facility] CHEM PANEL BUN 11 7 - 22 10/07/2017 [facility] ENDOCRINOLOGY S Preg Negative *NA* (10/07/17 1:13 AM) Negative 10/07/2017 [facility] HEMATOLOGY Basophils # 0.1 0.0 - 0.2 10/07/2017 [facility] HEMATOLOGY Lymphocytes # 2.6 1.0 - 5.5 10/07/2017 [facility] HEMATOLOGY Monocytes # 0.5 0.0 - 0.8 10/07/2017 [facility] HEMATOLOGY Segs-Bands # 4.5 1.5 - 8.1 10/07/2017 [facility] HEMATOLOGY Monocytes 6.7 2.0 - 12.0 10/07/2017 [facility] HEMATOLOGY Eosinophils 0.4 0.0 - 4.0 10/07/2017 [facility] HEMATOLOGY Lymphocytes 33.7 20.0 - 40.0 10/07/2017 [facility] HEMATOLOGY Basophils 0.8 0.0 - 1.0 10/07/2017 [facility] HEMATOLOGY Segs 58.4 45.0 - 75.0 10/07/2017 [facility] HEMATOLOGY MCH 28.0 27.0 - 31.0 10/07/2017 [facility] HEMATOLOGY MCHC 32.9 32.0 - 36.0 10/07/2017 [facility] HEMATOLOGY RDW 12.4 11.5 - 14.5 10/07/2017 [facility] HEMATOLOGY Platelet 347 133 - 450 10/07/2017 [facility] HEMATOLOGY MPV 9.4 7.4 - 10.4 10/07/2017 [facility] HEMATOLOGY WBC 7.6 3.7 - 10.4 10/07/2017 [facility] HEMATOLOGY MCV 85.1 80.0 - 98.0 10/07/2017 [facility] HEMATOLOGY Hct 42.3 36.0 - 48.0 10/07/2017 [facility] HEMATOLOGY Hgb 13.9 12.0 - 16.0 10/07/2017 [facility] HEMATOLOGY RBC 4.96 4.20 - 5.40 10/07/2017 [facility] HEMATOLOGY PT 13.2 12.0 - 14.7 10/07/2017 [facility] HEMATOLOGY INR 1.00 0.85 - 1.17 10/07/2017 [facility] HEMATOLOGY PTT 28.6 22.9 - 35.8 10/07/2017 [facility] TOXICOLOGY Acetaminoph Lvl 65 10 - 20 10/07/2017 [facility] TOXICOLOGY Etoh (%) <0.003 10/07/2017 [facility] TOXICOLOGY Ethanol Lvl <3 10/07/2017 [facility] TOXICOLOGY Salicylate Lvl <1.7 0.0 - 30.0 10/07/2017 [facility] CHEM PANEL Magnesium Lvl 2.1 1.8 - 2.4 10/07/2017 [facility] CHEM PANEL Phosphorus 3.4 2.5 - 4.5 10/07/2017 [facility] Pathology Reports No Data Provided for This Section Diagnostic Reports Report Value Date Source Preg < 14 weeks single gest w Doppler US Clinical Indication: Abdominal pain, positive test; last menstrual period May 19, 2018. Comparison: None TECHNIQUE: Pelvic ultrasound was performed with color and fisher scale imaging. Transabdominal and transvaginal technique performed. FINDINGS: The pelvic transabdominal ultrasound static images show that the anteverted uterus measures 10.8 cm. The pelvic transvaginal images show a single monochorionic/monoamnionic intrauterine with an ovoid gestational sac. The pole and yolk sac are seen. The estimated gestational age is 11 weeks 0 days by crown-rump length of 4.08 cm. The heart rate is 169 beats per minute. Hypoechoic subchorionic collection measures 2.4 x 1.5 cm. The right ovary measures 3.4 x 1.7 x 2.4 cm and the left ovary measures 2.6 x 1.9 x 3.0 cm. There is normal ovarian contour and morphology. There are no adnexal masses. The Doppler images show normal bilateral ovarian blood flow. There is no free fluid in the cul-de-sac. IMPRESSION: 1. Single intrauterine with estimated gestational age of 11 weeks 0 days . heart rate of 169 beats per minute. 2. Hypoechoic subchorionic hematoma measuring 2.4 x 1.5 cm. Followup may be performed with quantitative beta-hCG levels and short interval sonography. SL: [id number] 08/05/2018 [facility] Abdomen/Pelvis w IV contrast CT Clinical Indication: Acute abdominal pain - IV only Comparison: None TECHNIQUE: Helical imaging was performed diaphragm through the symphysis with multiplanar reformations obtained. IV CONTRAST: 100cc Omnipaque [id number] GI CONTRAST: No CT Radiation Dose: RLQ=448.42 mGy-cm FINDINGS: LOWER CHEST: The lung bases are clear. SOLID ORGANS: Liver, gallbladder, spleen, pancreas, adrenal glands and kidneys are normal in appearance. BOWEL: No acute bowel obstruction. Normal caliber appendix without periappendiceal inflammatory change. PERITONEUM: No free intraperitoneal fluid or air. RETROPERITONEUM: No pathologic adenopathy. The aorta is normal in caliber. PELVIS: No pelvic mass. The urinary bladder is normal. MUSCULOSKELETAL: No acute osseous abnormality. IMPRESSION: 1. No CT evidence for acute process in the abdomen or pelvis. SL: [id number] 03/01/2018 [facility] Chest 2 views DX EXAM: Chest 2 views DX DATE: 03/01/2018 2:56 PM CDT INDICATION: - fever, cough, concern for pneumonia COMPARISON: None. IMPRESSION: Grossly normal cardiac silhouette and mediastinum. No focal consolidation, significant pleural effusion or pneumothorax. Mild dextroscoliosis. SL: [id number] 03/01/2018 [facility] Hand 3 views DX Study: Hand 3 views DX 07/01/2017 12:58 AM CDT Ordering Physician: Mary Guerin Clinical Indication: Sports injury. Pain right fifth digit. Comparison: None FINDINGS: Images of the right hand demonstrate no evidence for fracture, dislocation or destructive lesion. No osteoarthritic changes are seen. The scapholunate interspace is normal. The carpus is grossly unremarkable. No soft tissue abnormalities are appreciated. IMPRESSION: Normal images of the right hand. SL: [id number] 07/01/2017 [facility] Consultation Notes No Data Provided for This Section Discharge Summaries No Data Provided for This Section History and Physicals No Data Provided for This Section Vital Signs Vital Sign Value Date Comments Source Temperature Oral (F) 98.3 F 02/06/2019 [facility] Respitory Rate 14 02/06/2019 [facility] Systolic (mm Hg) 114 02/06/2019 [facility] Diastolic (mm Hg) 70 02/06/2019 [facility] Heart Rate 82 02/06/2019 [facility] Systolic (mm Hg) 100 02/06/2019 [facility] Diastolic (mm Hg) 64 02/06/2019 [facility] Temperature Oral (F) 97.8 F 02/06/2019 [facility] Heart Rate 72 02/06/2019 [facility] Respitory Rate 16 02/06/2019 [facility] Temperature Oral (F) 97.8 F 02/05/2019 [facility] Heart Rate 55 02/05/2019 [facility] Systolic (mm Hg) 98 02/05/2019 [facility] Diastolic (mm Hg) 67 02/05/2019 [facility] Respitory Rate 16 02/05/2019 [facility] Weight 64.091 02/04/2019 [facility] BMI Calculated 25.84 02/04/2019 [facility] Height 157.48 cm 02/04/2019 [facility] Systolic (mm Hg) 107 08/05/2018 [facility] Diastolic (mm Hg) 70 08/05/2018 [facility] Temperature Oral (F) 98.6 F 08/05/2018 [facility] Respitory Rate 18 08/05/2018 [facility] Heart Rate 72 08/05/2018 [facility] Temperature Oral (F) 99.0 F 08/05/2018 [facility] Heart Rate 78 08/05/2018 [facility] Respitory Rate 18 08/05/2018 [facility] Systolic (mm Hg) 109 08/05/2018 [facility] Diastolic (mm Hg) 73 08/05/2018 [facility] Respitory Rate 18 03/02/2018 [facility] Systolic (mm Hg) 96 03/02/2018 [facility] Diastolic (mm Hg) 54 03/02/2018 [facility] Heart Rate 67 03/02/2018 [facility] Temperature Oral (F) 99.2 F 03/02/2018 [facility] Heart Rate 88 03/01/2018 [facility] Temperature Oral (F) 102 F 03/01/2018 [facility] Respitory Rate 17 03/01/2018 [facility] Systolic (mm Hg) 101 03/01/2018 [facility] Diastolic (mm Hg) 67 03/01/2018 [facility] BMI Calculated 20.41 03/01/2018 [facility] Weight 52.273 03/01/2018 [facility] Height 160.02 cm 03/01/2018 [facility] Temperature Oral (F) 103 F 03/01/2018 [facility] Heart Rate 108 03/01/2018 [facility] Respitory Rate 18 03/01/2018 [facility] Systolic (mm Hg) 102 03/01/2018 [facility] Diastolic (mm Hg) 64 03/01/2018 [facility] Temperature Oral (F) 98.4 F 10/07/2017 [facility] Heart Rate 66 10/07/2017 [facility] Systolic (mm Hg) 122 10/07/2017 [facility] Diastolic (mm Hg) 84 10/07/2017 [facility] Respitory Rate 16 10/07/2017 [facility] Systolic (mm Hg) 114 10/07/2017 [facility] Diastolic (mm Hg) 80 10/07/2017 [facility] Heart Rate 63 10/07/2017 [facility] Respitory Rate 17 10/07/2017 [facility] Heart Rate 66 10/07/2017 [facility] Systolic (mm Hg) 123 10/07/2017 [facility] Diastolic (mm Hg) 87 10/07/2017 [facility] Respitory Rate 16 10/07/2017 [facility] Respitory Rate 18 07/01/2017 [facility] Heart Rate 67 07/01/2017 [facility] Systolic (mm Hg) 113 07/01/2017 [facility] Diastolic (mm Hg) 75 07/01/2017 [facility] Weight 52.727 07/01/2017 [facility] BMI Calculated 20.59 07/01/2017 [facility] Temperature Oral (F) 98.1 F 07/01/2017 [facility] Heart Rate 66 07/01/2017 [facility] Respitory Rate 16 07/01/2017 [facility] Systolic (mm Hg) 113 07/01/2017 [facility] Diastolic (mm Hg) 75 07/01/2017 [facility] Height 160.02 cm 07/01/2017 [facility] Encounters Location Location Details Encounter Type Encounter Number Reason For Visit Attending Provider ADM Date DC Date Status Source [facility] Emergency [id number] Cat Watts 07/01/2017 07/01/2017 [facility] Emergency [id number] Cat Watts 10/07/2017 10/07/2017 [facility] Emergency [id number] Xiomara Zepeda 03/01/2018 03/02/2018 [facility] Emergency [id number] Nate Luis 08/05/2018 08/05/2018 [facility] Inpatient [id number] Jonathon Cummings 02/04/2019 02/06/2019 [facility] Procedures No Data Provided for This Section Assessment and Plan Assessment and Plan Date Source Extracted from:Title: Admission H and P Author: Elizabeth Anthony MD Date: 02/04/19 Basic Information Additional information: Chief Complaint from Nursing Triage Note : Chief Complaint 02/03/2019 21:12 Chief Complaint contractions, hip pain, back pain x 2 hours . History of Present Illness 18 yo G1 at 37 1/7 w, private fo [place], presetns with several hours of hip pain, back pain and contractions. She denies vaginal bleeding or LOF. Good movement. Denies any medical or surgical history or problems. Review of Systems Constitutional symptoms: Negative except as documented in HPI. Respiratory symptoms: Negative except as documented in HPI. Cardiovascular symptoms: Negative except as documented in HPI. Gastrointestinal symptoms: Negative except as documented in HPI. Genitourinary symptoms: Negative except as documented in HPI. Musculoskeletal symptoms: Negative except as documented in HPI. Neurologic symptoms: Negative except as documented in HPI. Psychiatric symptoms: Negative except as documented in HPI. Endocrine symptoms: Negative except as documented in HPI. Hematologic/Lymphatic symptoms: Negative except as documented in HPI. Allergy/immunologic symptoms: Negative except as documented in HPI. Health Status Allergies: Allergic Reactions (All) Severity Not Documented NKDA- No reactions were documented.. Physical Examination General: Alert, no acute distress. Skin: Warm, dry, pink. Neck: Supple, trachea midline. Cardiovascular: Regular rate and rhythm, No murmur. Respiratory: Lungs are clear to auscultation, respirations are non-labored. Gastrointestinal: Soft, Nontender, Gravid. Genitourinary: No tenderness, SVE 3/90/0 Cephalic. Neurological: Alert and oriented to person, place, time, and situation. Psychiatric: Cooperative, appropriate mood and affect. Medical Decision Making Differential Diagnosis: , labor. Documents reviewed: None available. Heart Rate By Doppler 140 bpm, Variability Moderate, Accelerations Present, Decelerations Absent. Impression and Plan Diagnosis 37 weeks gestation of ([id number], Working, Medical) Calls-Consults - Jonathon Cummings MD, Will admit for delivery. Plan Condition: Stable. Disposition: Admit to Inpatient Unit. Notes: 18 yo G1 at 37 weeks in active labor, discusseed with her abdifatah [place]EV[place], will admit for delivery . Signature Line Elizabeth Anthony MD Electronically Signed: 02/04/19 02:57 02/06/2019 [facility] Plan of Care No Data Provided for This Section Social History Social History Date Source Social History TypeResponse Substance Abuse Use: None. Alcohol Never Smoking Status Never smoker; Ready to change: No; Concerns about tobacco use in household: No; Exposure to Tobacco Smoke None; Cigarette Smoking Last 365 Days No; Reg Smoking Cessation Counseling No entered on: 02/03/19 02/04/2019 [facility] Family History No Data Provided for This Section Advance Directives No Data Provided for This Section Functional Status No Data Provided for This Section
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
[2019-06-15 02:23] VITALS: BP 94/66
== END 2019-06-15 01:00 | disposition home or self-care (01) ==
LOC: ER 22:39
DX: S06.0X0A Concussion without loss of consciousness, initial encounter (principal); S00.83XA Contusion of other part of head, initial encounter; S50.11XA Contusion of right forearm, initial encounter; M25.521 Pain in right elbow; M25.561 Pain in right knee; Y04.0XXA Assault by unarmed brawl or fight, initial encounter; Y92.008 Other place in unspecified non-institutional (private) residence as the place of occurrence of the external cause
CPT/HCPCS: 70450; 70486; 81025; 99283